=== PATIENT | female | born 1995 | race Two or more races ===

== ENCOUNTER → 2018-06-11 | Outpatient (CLI) | payer OTHER ==
[~2018-06-11] MED LIST: BCP'S; IBUP600 PO
[2018-06-11 14:02] LABS: BASOPHILS ABSOLUTE AUTO 0.05 K/mm3 (0.00-0.23); BASOPHILS PERCENT AUTO 1 % (0-2); EOSINOPHILS ABSOLUTE AUTO 0.08 K/mm3 (0.00-0.68); EOSINOPHILS PERCENT AUTO 2 % (0-6); Hematocrit 37.8 % (33.0-51.0); Hemoglobin 12.4 g/dL (11.5-16.0); IMMATURE GRAN PERCENT AUTO 0 % (0-1); LYMPHOCYTES PERCENT AUTO 35 % (21-46); MONOCYTES ABSOLUTE AUTO 0.49 K/mm3 (0.16-1.47); MONOCYTES PERCENT AUTO 10 % (4-13); Mean Corpuscular HGB Conc 32.8 g/dL (31.5-36.5); Mean Corpuscular Volume 85 fL (80-100); Mean Platelet Volume 10.7 fL (9.1-12.4); NEUTROPHILS ABSOLUTE AUTO 2.68 K/mm3 (1.96-9.15); NEUTROPHILS PERCENT AUTO 53 % (41-73); Platelet Count 286 K/mm3 (150-400); RDW Coefficient Variation 13.7 % (11.7-14.2); RDW Standard Deviation 42.7 fL (35.1-46.3); Red Blood Cell Count 4.43 M/mm3 (3.80-5.20)
[2018-06-11 14:24] LABS: Alanine Aminotransfer (ALT/SGP 14 U/L (12-78); Albumin, Blood 3.8 g/dL (3.4-5.0); Albumin/Globulin Ratio 1.1 (0.8-1.8); Alk Phos 49 U/L (40-126); Anion Gap 10 mmol/L (6-16); Aspartate Aminotrans (AST/SGOT 17 U/L (12-37); Bilirubin, Total 0.3 mg/dL (0.1-1.0); Blood Urea Nitrogen 7 mg/dL (8-24); CO2, Blood 27 mmol/L (21-32); Calcium, Blood 9.2 mg/dL (8.5-10.1); Chloride, Blood 105 mmol/L (98-108); Globulin, Blood 3.4 g/dL (2.2-4.0); Glomerular Filtration Rate >60 (60-); Glucose, Blood 88 mg/dL (70-99); Potassium, Blood 3.7 mmol/L (3.5-5.5); Sodium, Blood 142 mmol/L (136-145); Thyroid Stimulating Hormone 1.158 uIU/mL (0.360-4.800); Total Protein, Blood 7.2 g/dL (6.4-8.2)
== END | disposition home or self-care (01) ==
LOC: LAB SHORT 13:56 → LAB EV 13:56
PROVIDERS: General Practice
DX: R53.81 Other malaise (principal)
CPT/HCPCS: 80053; 82607; 82746; 84443; 85025; 85651

== ENCOUNTER → 2018-08-18 | Outpatient (CLI) | payer OTHER | END | disposition home or self-care (01) | LOC: LAB EV 11:34 → LAB SHORT 11:34 | DX: J03.90 Acute tonsillitis, unspecified (principal) | CPT/HCPCS: 87070 ==

== ENCOUNTER → 2018-12-01 | Outpatient (CLI) | payer OTHER ==
[2018-12-01 13:56] LABS: BASOPHILS ABSOLUTE AUTO 0.03 K/mm3 (0.00-0.23); BASOPHILS PERCENT AUTO 1 % (0-2); EOSINOPHILS ABSOLUTE AUTO 0.06 K/mm3 (0.00-0.68); EOSINOPHILS PERCENT AUTO 1 % (0-6); Hematocrit 34.9 % (33.0-51.0); Hemoglobin 11.6 g/dL (11.5-16.0); IMMATURE GRAN ABSOLUTE AUTO 0.01 K/mm3 (0.00-0.10); IMMATURE GRAN PERCENT AUTO 0 % (0-1); LYMPHOCYTES ABSOLUTE AUTO 1.74 K/mm3 (0.84-5.20); LYMPHOCYTES PERCENT AUTO 32 % (21-46); MONOCYTES ABSOLUTE AUTO 0.44 K/mm3 (0.16-1.47); MONOCYTES PERCENT AUTO 8 % (4-13); Mean Corpuscular HGB 28.2 pg (26.0-34.0); Mean Corpuscular HGB Conc 33.2 g/dL (31.5-36.5); Mean Corpuscular Volume 85 fL (80-100); Mean Platelet Volume 9.7 fL (9.1-12.4); NEUTROPHILS ABSOLUTE AUTO 3.13 K/mm3 (1.96-9.15); NEUTROPHILS PERCENT AUTO 58 % (41-73); Platelet Count 319 K/mm3 (150-400); RDW Coefficient Variation 13.2 % (11.7-14.2); RDW Standard Deviation 40.6 fL (35.1-46.3); Red Blood Cell Count 4.12 M/mm3 (3.80-5.20); White Blood Cell Count 5.41 K/mm3 (4.00-11.30)
[2018-12-01 14:10] LABS: Alanine Aminotransfer (ALT/SGP 13 U/L (12-78); Albumin, Blood 3.3 g/dL (3.4-5.0); Albumin/Globulin Ratio 0.8 (0.8-1.8); Alk Phos 51 U/L (40-126); Anion Gap 10 mmol/L (6-16); Aspartate Aminotrans (AST/SGOT 15 U/L (12-37); Bilirubin, Total 0.3 mg/dL (0.1-1.0); Blood Urea Nitrogen 7 mg/dL (8-24); Bun/Creatinine Ratio 8.6 (12.0-20.0); CO2, Blood 27 mmol/L (21-32); Calcium, Blood 8.5 mg/dL (8.5-10.1); Chloride, Blood 103 mmol/L (98-108); Creatinine, Blood 0.81 mg/dL (0.40-1.00); Globulin, Blood 3.9 g/dL (2.2-4.0); Glomerular Filtration Rate >60 (60-); Glucose, Blood 94 mg/dL (70-99); Potassium, Blood 3.9 mmol/L (3.5-5.5); Sodium, Blood 140 mmol/L (136-145); Total Protein, Blood 7.2 g/dL (6.4-8.2)
== END ==
LOC: LAB EV 13:52 → LAB SHORT 13:52
PROVIDERS: Family Medicine
DX: R42 Dizziness and giddiness (principal)
CPT/HCPCS: 80053; 85025

== ENCOUNTER → 2019-01-28 | Outpatient (CLI) | payer OTHER ==
[2019-01-28 17:13] LABS: BASOPHILS ABSOLUTE AUTO 0.06 K/mm3 (0.00-0.23); BASOPHILS PERCENT AUTO 1 % (0-2); EOSINOPHILS ABSOLUTE AUTO 0.05 K/mm3 (0.00-0.68); EOSINOPHILS PERCENT AUTO 1 % (0-6); Hematocrit 38.1 % (33.0-51.0); Hemoglobin 12.4 g/dL (11.5-16.0); IMMATURE GRAN ABSOLUTE AUTO 0.02 K/mm3 (0.00-0.10); IMMATURE GRAN PERCENT AUTO 0 % (0-1); LYMPHOCYTES PERCENT AUTO 23 % (21-46); MONOCYTES ABSOLUTE AUTO 0.63 K/mm3 (0.16-1.47); MONOCYTES PERCENT AUTO 7 % (4-13); Mean Corpuscular HGB 26.7 pg (26.0-34.0); Mean Corpuscular HGB Conc 32.5 g/dL (31.5-36.5); Mean Corpuscular Volume 82 fL (80-100); Mean Platelet Volume 9.8 fL (9.1-12.4); NEUTROPHILS ABSOLUTE AUTO 6.54 K/mm3 (1.96-9.15); NEUTROPHILS PERCENT AUTO 69 % (41-73); Platelet Count 308 K/mm3 (150-400); RDW Coefficient Variation 14.5 % (11.7-14.2); RDW Standard Deviation 42.1 fL (35.1-46.3); Red Blood Cell Count 4.64 M/mm3 (3.80-5.20)
[2019-01-28 17:26] LABS: Alanine Aminotransfer (ALT/SGP 19 U/L (12-78); Albumin, Blood 3.9 g/dL (3.4-5.0); Alk Phos 62 U/L (40-126); Anion Gap 11 mmol/L (6-16); Aspartate Aminotrans (AST/SGOT 17 U/L (12-37); Bilirubin, Total 0.3 mg/dL (0.1-1.0); Blood Urea Nitrogen 6 mg/dL (8-24); Bun/Creatinine Ratio 7.7 (12.0-20.0); CO2, Blood 25 mmol/L (21-32); Calcium, Blood 8.6 mg/dL (8.5-10.1); Chloride, Blood 103 mmol/L (98-108); Creatinine, Blood 0.78 mg/dL (0.40-1.00); Glomerular Filtration Rate >60 (60-); Glucose, Blood 88 mg/dL (70-99); Potassium, Blood 3.7 mmol/L (3.5-5.5); Sodium, Blood 139 mmol/L (136-145); Total Protein, Blood 7.9 g/dL (6.4-8.2)
== END | disposition home or self-care (01) ==
LOC: LAB EV 17:08 → LAB SHORT 17:08
PROVIDERS: Physician Assistant
DX: R10.13 Epigastric pain (principal)
CPT/HCPCS: 80053; 83690; 85025

== ENCOUNTER → 2019-03-03 | Outpatient (CLI) | payer OTHER | END | disposition home or self-care (01) | LOC: LAB SHORT 12:15 → LAB EV 12:15 | DX: R82.79 Other abnormal findings on microbiological examination of urine (principal) | CPT/HCPCS: 87086 ==

== ENCOUNTER 2019-09-05 08:33 | Day surgery (SDC) | payer OTHER ==
[~2019-09-05] VITALS: Ht 154.9 cm; Wt 62.4 kg
[~2019-09-05 08:33] MED LIST changes: +Robaxin750 MG PO; +SERT25 PO; +Sprintec1 EACH PO
--- NOTE | 2019-09-05 09:45 | NUR ---
09/05/19 0945 GATO RAMIRES History, Chart, Medications and Allergies reviewed before start of procedure.3-LEAD EKG REVIEWED WITH PHYSICIAN PRIOR TO START OF PROCEDURE.O2 VIA N/C INTACT THROUGHOUT SEDATION/PROCEDURE. MONITOR INTACT WITH CONTINUOUS PULSE OXIMETRY AND INTERMITTENT BP.PATIENT DETERMINED TO BE ASA APPROPRIATE FOR PROPOFOL SEDATION PRIOR TO START OF PROCEDURE BY .
--- NOTE | 2019-09-05 10:49 | NUR ---
PT TO STEP. DENIES PAIN OR NAUSEA.
--- NOTE | 2019-09-05 10:49 | NUR ---
ADVISED TO PASS AIR IF ABLE.
--- NOTE | 2019-09-05 11:00 | NUR ---
REPORT GIVEN TO DANIELLE CHAVARRIA RN.
--- NOTE | 2019-09-05 11:21 | NUR ---
Patient up to Ambulate independently. Gait steady. Discharge instructions reviewed with patient. Patient verbalizes understanding. Copy given to patient to take home. Discharged via wheelchair to private car for ride home.
== END 2019-09-05 11:21 | disposition home or self-care (01) ==
LOC: ORSCMMR 08:33 → ORD 09:30 → ORSCMMR 11:21
PROVIDERS: Internal Medicine Gastroenterology
PROC: 0DB68ZX Excision of Stomach, Via Natural or Artificial Opening Endoscopic, Diagnostic (ICD-10-PCS; principal; 2019-09-05 09:30)
PROC: 0DB48ZX Excision of Esophagogastric Junction, Via Natural or Artificial Opening Endoscopic, Diagnostic (ICD-10-PCS; principal; 2019-09-05 09:30)
PROC: 0DB98ZX Excision of Duodenum, Via Natural or Artificial Opening Endoscopic, Diagnostic (ICD-10-PCS; principal; 2019-09-05 09:30)
PROC: 0DBE8ZX Excision of Large Intestine, Via Natural or Artificial Opening Endoscopic, Diagnostic (ICD-10-PCS; principal; 2019-09-05 09:30)
DX: R19.7 Diarrhea, unspecified (principal); K21.9 Gastro-esophageal reflux disease without esophagitis; R10.13 Epigastric pain; R11.2 Nausea with vomiting, unspecified; K62.5 Hemorrhage of anus and rectum; F32.9 Major depressive disorder, single episode, unspecified; Z79.899 Other long term (current) drug therapy
CPT/HCPCS: 88305; 88342; J2250; J2704; J7120

== ENCOUNTER → 2019-09-21 | Outpatient (CLI) | payer OTHER | LOC: LAB UCHC 09:57 → LAB SHORT 09:57 | PROVIDERS: Registered Nurse Community Health | DX: Z12.4 Encounter for screening for malignant neoplasm of cervix (principal) | CPT/HCPCS: G0123 ==

== ENCOUNTER 2019-11-22 05:53 | Day surgery (SDC) | payer OTHER ==
[~2019-11-22] VITALS: Ht 154.9 cm; Wt 65.6 kg
--- NOTE | 2019-11-22 06:49 | NUR ---
History, Chart, Medications and Allergies reviewed before start of procedure. Patient confirms NPO status and agrees with scheduled surgery. Lungs clear T/O to Auscultation. Patient reports completing Chlorhexadine shower X2 prior to admission to hospital. Patient States Post-Procedure ride home has been arranged. Pre-Op teaching done. Pt verbalizes understanding. PATIENT WILL REMOVE RING AND GIVE TO HER SIGNIFICANT OTHER, NO OTHER HEARING DEVICES,CONTACTS,GLASSES, OR DENTURES PRESENT AT ADMIT.
--- NOTE | 2019-11-22 07:09 | NUR ---
OR REPORT COMPLETED AT BEDSIDE WITH JOSUE BROWN.
== END 2019-11-22 12:30 | disposition home or self-care (01) ==
LOC: ORSCMMR 05:53 → ORD 07:30 → ORSCMMR 07:30 → ORD 08:45 → ORSCMMR 12:30
PROVIDERS: Surgery
PROC: 0FT44ZZ Resection of Gallbladder, Percutaneous Endoscopic Approach (ICD-10-PCS; principal; 2019-11-22 07:30)
DX: K80.18 Calculus of gallbladder with other cholecystitis without obstruction (principal)
CPT/HCPCS: 88304; A9270-GY; J0690; J1100; J1885; J2250; J2405; J2704; J2710; J3010; J7120

== ENCOUNTER 2021-12-30 11:41 | Emergency (ER) | payer OTHER ==
[~2021-12-30] VITALS: Ht 154.9 cm; Wt 59.0 kg
[2021-12-30 12:28] LABS: BASOPHILS ABSOLUTE AUTO 0.07 K/mm3 (0.00-0.23); BASOPHILS PERCENT AUTO 1 % (0-2); EOSINOPHILS ABSOLUTE AUTO 0.12 K/mm3 (0.00-0.68); EOSINOPHILS PERCENT AUTO 1 % (0-6); Hematocrit 38.3 % (33.0-51.0); Hemoglobin 12.8 g/dL (11.5-16.0); IMMATURE GRAN ABSOLUTE AUTO 0.03 K/mm3 (0.00-0.10); IMMATURE GRAN PERCENT AUTO 0 % (0-1); LYMPHOCYTES ABSOLUTE AUTO 1.87 K/mm3 (0.84-5.20); LYMPHOCYTES PERCENT AUTO 22 % (21-46); MONOCYTES ABSOLUTE AUTO 0.57 K/mm3 (0.16-1.47); MONOCYTES PERCENT AUTO 7 % (4-13); Mean Corpuscular HGB 28.5 pg (26.0-34.0); Mean Corpuscular HGB Conc 33.4 g/dL (31.5-36.5); Mean Corpuscular Volume 85 fL (80-100); Mean Platelet Volume 10.1 fL (9.1-12.4); NEUTROPHILS ABSOLUTE AUTO 5.83 K/mm3 (1.96-9.15); NEUTROPHILS PERCENT AUTO 69 % (41-73); Platelet Count 301 K/mm3 (150-400); RDW Coefficient Variation 12.6 % (11.7-14.2); RDW Standard Deviation 39.1 fL (35.1-46.3); Red Blood Cell Count 4.49 M/mm3 (3.80-5.20); White Blood Cell Count 8.49 K/mm3 (4.00-11.30)
[2021-12-30 12:56] LABS: Alanine Aminotransfer (ALT/SGP 25 U/L (12-78); Albumin, Blood 3.8 g/dL (3.4-5.0); Albumin/Globulin Ratio 1.1 (0.8-1.8); Alk Phos 65 U/L (50-136); Anion Gap 9 mmol/L (6-16); Aspartate Aminotrans (AST/SGOT 17 U/L (12-37); Bilirubin, Total 0.5 mg/dL (0.1-1.0); Blood Urea Nitrogen 6 mg/dL (8-24); Bun/Creatinine Ratio 8.8 (12.0-20.0); CO2, Blood 26 mmol/L (21-32); Chloride, Blood 104 mmol/L (98-108); Creatinine, Blood 0.68 mg/dL (0.40-1.00); Globulin, Blood 3.6 g/dL (2.2-4.0); Glomerular Filtration Rate >60 (60-); Glucose, Blood 98 mg/dL (70-99); Potassium, Blood 3.3 mmol/L (3.5-5.5); Sodium, Blood 139 mmol/L (136-145); Total Protein, Blood 7.4 g/dL (6.4-8.2)
[2021-12-30 13:14] LABS: Source, Urine Clean Catch
[2021-12-30 13:19] LABS: Bilirubin, Urine Neg (Neg); Blood, Urine 3+ (Neg); Glucose Qualitative, Urine Neg (Neg); Ketones, Urine Neg (Neg); Leukocyte Esterase, Urine Neg (Neg); Nitrite, Urine Neg (Neg); Protein, Urine 1+ (Neg); Specific Gravity, Urine 1.025 (1.003-1.022); Urobilinogen, Urine NORM (Normal)
[2021-12-30 13:38] LABS: Appearance, Urine Hazy (Clear); Color, Urine Pale Yellow (P-Yellow)
[2021-12-30 13:39] LABS: Bacteria Few /hpf; Mucus Heavy (0-Heavy); Squamous Epithelial Cells Rare /hpf (Few); White Blood Cells, Urine 0-2 /hpf (0-5)
[2021-12-30] MEDS ORDERED: ONDA4ODT MM (14:55)
== END 2021-12-30 15:13 | disposition home or self-care (01) ==
LOC: ER 11:41
PROVIDERS: Physician Assistant
DX: A09 Infectious gastroenteritis and colitis, unspecified (principal); J45.909 Unspecified asthma, uncomplicated; Z79.899 Other long term (current) drug therapy
CPT/HCPCS: 36415; 80053; 81001; 81025; 85025; 96374; 99283-25; A9270; J2405; J7030

== ENCOUNTER → 2022-01-01 | Outpatient (CLI) | payer OTHER ==
[~2022-01-01] MED LIST changes: +ONDA4ODT MM
[2022-01-01 17:04] LABS: Adenovirus F 40/41 Not Detected (NOT DETECT); Astrovirus Not Detected (NOT DETECT); Campylobacter Sp Not Detected (NOT DETECT); Cryptosporidium Not Detected (NOT DETECT); Cyclospora Cayetanensis Not Detected (NOT DETECT); E. Coli O157 Not Detected (NOT DETECT); Entamoeba Histolytica Not Detected (NOT DETECT); Enteroaggregative E. coli-EAEC Not Detected (NOT DETECT); Enteropathogenic E. coli-EPEC Not Detected (NOT DETECT); Enterotoxigenic E. coli-ETEC Not Detected (NOT DETECT); Giardia Lamblia Not Detected (NOT DETECT); Norovirus GI/GII Not Detected (NOT DETECT); Plesiomonas Shigelloides Not Detected (NOT DETECT); Rotavirus A Not Detected (NOT DETECT); Salmonella Sp Not Detected (NOT DETECT); Sapovirus Not Detected (NOT DETECT); Shiga Toxin-prod E. coli-STEC Not Detected (NOT DETECT); Shigella/Enteroin E. coli-EIEC Not Detected (NOT DETECT); Vibrio Cholerae Not Detected (NOT DETECT); Vibrio Sp Not Detected (NOT DETECT); Yersinia Enterocolitica Not Detected (NOT DETECT)
== END | disposition home or self-care (01) ==
LOC: LAB SHORT 12:40
PROVIDERS: Emergency Medicine
DX: R19.7 Diarrhea, unspecified (principal)
CPT/HCPCS: 0097U

== ENCOUNTER → 2022-01-06 | Outpatient (CLI) | payer OTHER ==
[~2022-01-06] MED LIST changes: +METPRE4DP PO; +SULF500A PO
[2022-01-06 15:26] LABS: BASOPHILS ABSOLUTE AUTO 0.06 K/mm3 (0.00-0.23); BASOPHILS PERCENT AUTO 1 % (0-2); EOSINOPHILS ABSOLUTE AUTO 0.09 K/mm3 (0.00-0.68); EOSINOPHILS PERCENT AUTO 2 % (0-6); Hemoglobin 10.1 g/dL (11.5-16.0); IMMATURE GRAN ABSOLUTE AUTO 0.01 K/mm3 (0.00-0.10); IMMATURE GRAN PERCENT AUTO 0 % (0-1); LYMPHOCYTES ABSOLUTE AUTO 1.85 K/mm3 (0.84-5.20); LYMPHOCYTES PERCENT AUTO 33 % (21-46); MONOCYTES ABSOLUTE AUTO 0.42 K/mm3 (0.16-1.47); MONOCYTES PERCENT AUTO 8 % (4-13); Mean Corpuscular HGB 28.5 pg (26.0-34.0); Mean Corpuscular HGB Conc 33.7 g/dL (31.5-36.5); Mean Corpuscular Volume 85 fL (80-100); NEUTROPHILS PERCENT AUTO 57 % (41-73); Platelet Count 269 K/mm3 (150-400); RDW Coefficient Variation 13.2 % (11.7-14.2); RDW Standard Deviation 40.3 fL (35.1-46.3); Red Blood Cell Count 3.55 M/mm3 (3.80-5.20); White Blood Cell Count 5.63 K/mm3 (4.00-11.30)
[2022-01-06 16:09] LABS: C-REACTIVE PROTEIN, EXT RANGE <0.290 mg/dL (0.000-0.300); Iron Serum 30 ug/dL (50-170); Percent Saturation 9.6 % (15.0-50.0); Total Iron Binding Capacity 313 ug/dL (250-450)
[2022-01-06 16:16] LABS: Ferritin, Serum 9 ng/mL (8-252)
[2022-01-06 16:27] LABS: Anion Gap 4 mmol/L (6-16); Blood Urea Nitrogen 5 mg/dL (8-24); Bun/Creatinine Ratio 7.1 (12.0-20.0); CO2, Blood 23 mmol/L (21-32); Calcium, Blood 8.4 mg/dL (8.5-10.1); Chloride, Blood 110 mmol/L (98-108); Glomerular Filtration Rate >60 (60-); Glucose, Blood 101 mg/dL (70-99); Potassium, Blood 3.6 mmol/L (3.5-5.5); Sodium, Blood 137 mmol/L (136-145)
== END | disposition home or self-care (01) ==
LOC: LAB SHORT 14:35
PROVIDERS: Nurse Practitioner Family
DX: R19.7 Diarrhea, unspecified (principal)
CPT/HCPCS: 80048; 82728; 83540; 83550; 85025; 86140

== ENCOUNTER → 2023-11-24 | Outpatient (CLI) | payer OTHER ==
[2023-11-24 15:00] LABS: BASOPHILS ABSOLUTE AUTO 0.07 K/mm3 (0.00-0.23); BASOPHILS PERCENT AUTO 1 % (0-2); EOSINOPHILS ABSOLUTE AUTO 0.05 K/mm3 (0.00-0.68); EOSINOPHILS PERCENT AUTO 1 % (0-6); Hematocrit 39.4 % (33.0-51.0); Hemoglobin 13.1 g/dL (11.5-16.0); IMMATURE GRAN ABSOLUTE AUTO 0.02 K/mm3 (0.00-0.10); IMMATURE GRAN PERCENT AUTO 0 % (0-1); LYMPHOCYTES ABSOLUTE AUTO 1.92 K/mm3 (0.84-5.20); LYMPHOCYTES PERCENT AUTO 33 % (21-46); MONOCYTES ABSOLUTE AUTO 0.47 K/mm3 (0.16-1.47); MONOCYTES PERCENT AUTO 8 % (4-13); Mean Corpuscular HGB 28.8 pg (26.0-34.0); Mean Corpuscular HGB Conc 33.2 g/dL (31.5-36.5); Mean Corpuscular Volume 87 fL (80-100); NEUTROPHILS ABSOLUTE AUTO 3.32 K/mm3 (1.96-9.15); NEUTROPHILS PERCENT AUTO 57 % (41-73); Platelet Count 290 K/mm3 (150-400); RDW Coefficient Variation 12.7 % (11.7-14.2); RDW Standard Deviation 39.8 fL (35.1-46.3); Red Blood Cell Count 4.55 M/mm3 (3.80-5.20); White Blood Cell Count 5.85 K/mm3 (4.00-11.30)
[2023-11-24 15:26] LABS: Percent Saturation 16.8 % (15.0-50.0)
[2023-11-24 15:30] LABS: Thyroid Stimulating Hormone 0.586 uIU/mL (0.360-4.800)
[2023-11-25 19:06] LABS: A/G RATIO 2.1 (1.2-2.2); BILIRUBIN, TOTAL 0.4 mg/dL (0.0-1.2); CALCIUM, SERUM 9.2 mg/dL (8.7-10.2); CREATININE, SERUM 0.74 mg/dL (0.57-1.00); GLOBULIN, TOTAL 2.2 g/dL (1.5-4.5); POTASSIUM, SERUM 4.1 mmol/L (3.5-5.2); PROTEIN, TOTAL, SERUM 6.9 g/dL (6.0-8.5)
== END ==
LOC: LAB EV 12:53 → LAB SHORT 12:53
PROVIDERS: Nurse Practitioner Family
DX: E61.1 Iron deficiency (principal); F41.9 Anxiety disorder, unspecified; R73.01 Impaired fasting glucose
CPT/HCPCS: 80053; 82728; 83036; 83540; 83550; 84443; 85025

== ENCOUNTER → 2024-04-05 | Outpatient (CLI) | payer OTHER ==
[~2024-04-05] MED LIST changes: +NAPR220 PO
== END | disposition home or self-care (01) ==
LOC: LAB 09:30 → LAB SHORT 09:30
DX: Z32.02 Encounter for pregnancy test, result negative (principal)
CPT/HCPCS: 84702

== ENCOUNTER 2024-07-07 10:11 | Day surgery (SDC) | payer OTHER ==
[~2024-07-07] VITALS: Ht 154.9 cm; Wt 54.4 kg
[2024-07-07] VITALS (11 sets, daily range): BP systolic 100–1156; BP diastolic 70–85
[~2024-07-07 10:11] MED LIST changes: +CeFAZolin Sodium 2,000 MG in NS 100 ML IV SCH; +Lactated Ringer's 1,000 ML IV SCH; +SERT50 PO; +SULF500 PO
[2024-07-07] MEDS ORDERED: ALBU90OI INH (10:30)
[2024-07-07] MEDS ORDERED: Bupivacaine 0.5% HCl 5 MG/ML 30MLVIAL ONE (10:33)
[2024-07-07] MEDS ORDERED: FentaNYL Citrate 50 MCG/ML 2 ML Injection ONE ×3 (10:39→12:20)
[2024-07-07] MEDS ORDERED: Rocuronium Bromide 10 MG/ML 5ML Injection IV ONE (10:39)
[2024-07-07] MEDS ORDERED: Dexamethasone Sod Phos 10 MG/ML 1ML VIAL ONE (10:39)
[2024-07-07] MEDS ORDERED: propofoL 20 ML IV ONE (10:39)
[2024-07-07] MEDS ORDERED: Ondansetron HCl 2 MG / ML 2ML Vial ONE (10:39)
--- NOTE | 2024-07-07 10:49 | NUR ---
Ambulatory in Day Surgery History, Chart, Medications and Allergies reviewed before start of procedure. Pre-Op teaching done. Pt verbalizes understanding. Patient States Post-Procedure ride home has been arranged.
[2024-07-07] MEDS ORDERED: Midazolam HCl 1MG / ML 2ML Vial ONE (11:17)
[2024-07-07] MEDS ORDERED: Sugammadex Sodium 200 MG/2ML SDV (100 MG/ML) ONE (11:51)
[2024-07-07] MEDS ORDERED: Ketorolac Tromethamine 30mg Vial ONE (12:04)
[2024-07-07] MEDS ORDERED: OxyCODONE 5 mg/Acetamin 325 mg TABLET PO PRN (12:10)
--- NOTE | 2024-07-07 13:26 | NUR ---
Discharge instructions reviewed with patient. Patient verbalizes understanding. Copy given to patient to take home. Dressings c/d/i. Prescriptions already filled. Scant bleeding on bertha-pad. Patient States Post-Procedure ride home has been arranged. Discharged via wheelchair to private car for ride home.
== END 2024-07-07 13:30 | disposition home or self-care (01) ==
LOC: ORSCMMR 10:11 → ORD 11:30 → ORSCMMR 11:30
PROVIDERS: Obstetrics & Gynecology
PROC: 0UT74ZZ Resection of Bilateral Fallopian Tubes, Percutaneous Endoscopic Approach (ICD-10-PCS; principal; 2024-07-07 11:30)
DX: Z30.2 Encounter for sterilization (principal); Q50.5 Embryonic cyst of broad ligament; Z87.891 Personal history of nicotine dependence
CPT/HCPCS: 88302; J0690; J1100; J1885; J2250; J2405; J2704; J3010; J7120

== ENCOUNTER 2024-07-15 22:53 | Emergency (ER) | payer OTHER ==
[~2024-07-15] VITALS: Ht 152.4 cm; Wt 54.4 kg
[~2024-07-15 22:53] MED LIST changes: +ALBU90OI INH; -CeFAZolin Sodium 2,000 MG in NS 100 ML IV SCH; -Lactated Ringer's 1,000 ML IV SCH
[2024-07-15 23:15] VITALS: BP 113/86
== END 2024-07-15 23:21 | disposition home or self-care (01) ==
LOC: ER 22:53
DX: K62.5 Hemorrhage of anus and rectum (principal); K64.8 Other hemorrhoids; Z88.5 Allergy status to narcotic agent; Z79.3 Long term (current) use of hormonal contraceptives; Z87.891 Personal history of nicotine dependence
CPT/HCPCS: 82272; 99283

== ENCOUNTER → 2024-07-19 | Outpatient (CLI) | payer OTHER ==
[2024-07-19 14:54] LABS: BASOPHILS ABSOLUTE AUTO 0.07 K/mm3 (0.00-0.23); BASOPHILS PERCENT AUTO 1 % (0-2); EOSINOPHILS ABSOLUTE AUTO 0.33 K/mm3 (0.00-0.68); EOSINOPHILS PERCENT AUTO 5 % (0-6); Hematocrit 30.9 % (33.0-51.0); Hemoglobin 10.2 g/dL (11.5-16.0); IMMATURE GRAN ABSOLUTE AUTO 0.01 K/mm3 (0.00-0.10); IMMATURE GRAN PERCENT AUTO 0 % (0-1); LYMPHOCYTES ABSOLUTE AUTO 2.66 K/mm3 (0.84-5.20); LYMPHOCYTES PERCENT AUTO 36 % (21-46); MONOCYTES ABSOLUTE AUTO 0.64 K/mm3 (0.16-1.47); MONOCYTES PERCENT AUTO 9 % (4-13); Mean Corpuscular HGB 27.5 pg (26.0-34.0); Mean Corpuscular Volume 83 fL (80-100); Mean Platelet Volume 11.6 fL (9.1-12.4); NEUTROPHILS ABSOLUTE AUTO 3.65 K/mm3 (1.96-9.15); NEUTROPHILS PERCENT AUTO 50 % (41-73); Platelet Count 290 K/mm3 (150-400); RDW Coefficient Variation 14.4 % (11.7-14.2); RDW Standard Deviation 43.6 fL (35.1-46.3); Red Blood Cell Count 3.71 M/mm3 (3.80-5.20); White Blood Cell Count 7.36 K/mm3 (4.00-11.30)
== END | disposition home or self-care (01) ==
LOC: LAB 11:13 → LAB SHORT 11:13
PROVIDERS: Nurse Practitioner Family
DX: E61.1 Iron deficiency (principal)
CPT/HCPCS: 82728; 83540; 83550; 85025

== ENCOUNTER 2024-10-29 11:46 | Inpatient (IN) | payer OTHER ==
[~2024-10-29] VITALS: Ht 154.9 cm; Wt 54.5 kg
[2024-10-29 12:33] LABS: BASOPHILS ABSOLUTE AUTO 0.05 K/mm3 (0.00-0.23); BASOPHILS PERCENT AUTO 1 % (0-2); EOSINOPHILS ABSOLUTE AUTO 0.13 K/mm3 (0.00-0.68); EOSINOPHILS PERCENT AUTO 2 % (0-6); Hematocrit 21.2 % (33.0-51.0); Hemoglobin 6.3 g/dL (11.5-16.0); IMMATURE GRAN ABSOLUTE AUTO 0.03 K/mm3 (0.00-0.10); IMMATURE GRAN PERCENT AUTO 1 % (0-1); LYMPHOCYTES ABSOLUTE AUTO 1.49 K/mm3 (0.84-5.20); LYMPHOCYTES PERCENT AUTO 23 % (21-46); MONOCYTES ABSOLUTE AUTO 0.54 K/mm3 (0.16-1.47); MONOCYTES PERCENT AUTO 8 % (4-13); Mean Corpuscular HGB 20.6 pg (26.0-34.0); Mean Corpuscular HGB Conc 29.7 g/dL (31.5-36.5); Mean Corpuscular Volume 69 fL (80-100); Mean Platelet Volume 9.9 fL (9.1-12.4); NEUTROPHILS PERCENT AUTO 66 % (41-73); Platelet Count 281 K/mm3 (150-400); RDW Coefficient Variation 18.6 % (11.7-14.2); RDW Standard Deviation 46.1 fL (35.1-46.3); Red Blood Cell Count 3.06 M/mm3 (3.80-5.20); White Blood Cell Count 6.54 K/mm3 (4.00-11.30)
[2024-10-29 12:47] LABS: Albumin, Blood 3.6 g/dL (3.4-5.0); Albumin/Globulin Ratio 1.2 (0.8-1.8); Bilirubin, Total 0.3 mg/dL (0.1-1.0); Bun/Creatinine Ratio 14.8 (12.0-20.0); Calcium, Blood 8.3 mg/dL (8.5-10.1); Creatinine, Blood 0.61 mg/dL (0.40-1.00); Globulin, Blood 2.9 g/dL (2.2-4.0); Potassium, Blood 3.1 mmol/L (3.5-5.5); Total Protein, Blood 6.5 g/dL (6.4-8.2)
[2024-10-29 13:34] LABS: IMMATURE RETIC FRACTION 20.6 % (2.3-16.0); RETIC HGB EQUIVALENT 18.6 pg (28.20-36.60); RETICULOCYTE ABSOLUTE 0.0441 M/mm3 (0.0200-0.1100); RETICULOCYTE COUNT PERCENT 1.47 % (0.50-2.50)
[2024-10-29 13:48] LABS: Percent Saturation 2.7 % (15.0-50.0)
[2024-10-29] MEDS ORDERED: NS 1,000 ML IV SCH ×2 (15:15→18:45)
[2024-10-29] MEDS ORDERED: FLU VACC TS2024-25(6MOS UP)/PF 45 MCG/0.5 ML SYRINGE IM SCH (16:50)
[2024-10-29] MEDS ORDERED: Ondansetron HCl 2 MG / ML 2ML Vial IV PRN (16:50)
[2024-10-29] MEDS ORDERED: HyDROXyzine HCl 25 MG Tab PO ONE (17:10)
[2024-10-29] MEDS ORDERED: Potassium Chloride 40 MEQ in NS 250 ML IV ONE (17:10)
[2024-10-29] MEDS ORDERED: Sodium, Potassium,Mag Sulfates 354 ML PO ONE (18:00)
[2024-10-29] MEDS ORDERED: NS 1,000 ML IV ONE (18:33)
[2024-10-29 19:22] LABS: Hematocrit 22.9 % (33.0-51.0)
[2024-10-29] MEDS ORDERED: NS 500 ML IV SCH (21:20)
[2024-10-29 21:22] VITALS: BP 115/65
[2024-10-29 22:04] VITALS: BP 109/66
--- NOTE | 2024-10-29 22:07 | NUR ---
ARRIVAL PT ARRIVED TO THE UNIT. A/OX4, ON RA. PT REPORTS DIZZINESS AND LIGHTHEADED NESS WHEN STANDING BUT REPORTS IT PASSESS AFTER STANDING FOR A MOMENT. VSS. PT PASSING LARGE AMOUNTS OF MAGGIE RED BLOOD PER RECTUM. REPORTS INTERMITTENT NAUSEA. DR. BELL TO THE ROOM FOR A BLOOD CONCENT.
[2024-10-29 22:20] VITALS: BP 99/72
[2024-10-29 23:21] VITALS: BP 113/71
[2024-10-30] VITALS (14 sets, daily range): BP systolic 95–112; BP diastolic 53–74
--- NOTE | 2024-10-30 00:42 | NUR ---
BLOOD ADMINISTRATION THE PT JUST FINISHED RECIEVING THE 2ND UNIT OF PRBC, DENIES ANY SOB, INCREASED WOB, LOWER BACK PAIN, OR ITCHING
[2024-10-30 01:45] LABS: BASOPHILS ABSOLUTE AUTO 0.09 K/mm3 (0.00-0.23); BASOPHILS PERCENT AUTO 1 % (0-2); EOSINOPHILS ABSOLUTE AUTO 0.09 K/mm3 (0.00-0.68); EOSINOPHILS PERCENT AUTO 1 % (0-6); Hematocrit 27.2 % (33.0-51.0); Hemoglobin 8.7 g/dL (11.5-16.0); IMMATURE GRAN ABSOLUTE AUTO 0.06 K/mm3 (0.00-0.10); IMMATURE GRAN PERCENT AUTO 1 % (0-1); LYMPHOCYTES PERCENT AUTO 29 % (21-46); MONOCYTES ABSOLUTE AUTO 0.82 K/mm3 (0.16-1.47); MONOCYTES PERCENT AUTO 10 % (4-13); Mean Corpuscular HGB 24.1 pg (26.0-34.0); Mean Platelet Volume 9.8 fL (9.1-12.4); NEUTROPHILS ABSOLUTE AUTO 5.05 K/mm3 (1.96-9.15); NEUTROPHILS PERCENT AUTO 59 % (41-73); Platelet Count 254 K/mm3 (150-400); RDW Coefficient Variation 21.8 % (11.7-14.2); Red Blood Cell Count 3.61 M/mm3 (3.80-5.20); White Blood Cell Count 8.61 K/mm3 (4.00-11.30)
[2024-10-30 01:47] LABS: Mean Corpuscular Volume 75 fL (80-100)
[2024-10-30 02:04] LABS: Albumin, Blood 3.3 g/dL (3.4-5.0); Albumin/Globulin Ratio 1.2 (0.8-1.8); Bilirubin, Total 1.4 mg/dL (0.1-1.0); Bun/Creatinine Ratio 8.1 (12.0-20.0); Calcium, Blood 7.7 mg/dL (8.5-10.1); Creatinine, Blood 0.49 mg/dL (0.40-1.00); Globulin, Blood 2.7 g/dL (2.2-4.0); Potassium, Blood 3.9 mmol/L (3.5-5.5)
--- NOTE | 2024-10-30 05:16 | NUR ---
SHIFT SUMMARY VSS, TELE READS NSR 71. PT HAS SLEPT WELL T/O THE NIGHT. AMBULATING TO THE BATHROOM/BSC W/MIN ASSISTANCE. PASSING LARGE AMOUNTS OF BRIGHT RED LIQUID PER RECTUM. PT HAS COMPLETED HER BOWEL PREP, MADE NPO AT 0500. REPORTS MINIMAL DIFFUSE ABD TENDERNESS. PT REPORTS IMPROVEMENT IN SYMPTOMS OF DIZINESS, LIGHTHEADEDNESS, AND WEAKNESS THIS AM. PLAN FOR UPPER AND LOWER SCOPE THIS AM.
[2024-10-30] MEDS ORDERED: Lactated Ringer's 1,000 ML IV SCH (08:30)
[2024-10-30] MEDS ORDERED: propofoL 20 ML IV ONE ×4 (09:34→10:27)
--- NOTE | 2024-10-30 09:41 | NUR ---
History, Chart, Medications and Allergies reviewed before start of procedure. Lungs clear T/O to Auscultation. Patient confirms NPO status and agrees with scheduled surgery. Pre-Op teaching done. Pt verbalizes understanding. Patient states colon prep results clear.
--- NOTE | 2024-10-30 09:57 | NUR ---
10/30/24 0957 Jami Tamez History, Chart, Medications and Allergies reviewed before start of procedure. LUNGS CLEAR T/O TO AUSCULTATION. MONITOR INTACT WITH CONTINUOUS PULSE OXIMETRY, CONTINUOUS END TITAL CO2, AND INTERMITTENT BLOOD PRESSURE. SEE DR. SO FOR SEDATION RECORD.
[2024-10-30] MEDS ORDERED: FentaNYL Citrate 50 MCG/ML 2 ML Injection IV PRN (11:15)
[2024-10-30] MEDS ORDERED: HYDROcodone 5-APAP 325 TAB PO PRN (11:20)
--- NOTE | 2024-10-30 11:25 | NUR ---
pt arrived to unit from day surgery transferred pt from [facility] to bed. pt awoke and began thrashing around and crying out that her rectum is very painful. difficult to redirect to get vs and put on tele. had episode of emesis, medicated per orders w/rob. dr guillory ordered pain meds, awaiting pharmacy verification. pt crying in room, provided k pad to area for comfort. bed alarm on for safety. pt to remain npo per orders for now.
--- NOTE | 2024-10-30 12:53 | NUR ---
PT CRYING OUT AND SHAKING W/PAIN STATES PAIN IS ON INSIDE. KPAD FOR COMFORT AND MEDICATED PER ORDERS FOR PAIN. COACHED PT ON RELAXATION BREATHING BUT PT IS DIFFICULT TO REDIRECT AND CONSOLE DUE TO PAIN. CALL LIGHT IN REACH.
[2024-10-30 13:16] LABS: Hemoglobin 8.3 g/dL (11.5-16.0)
--- NOTE | 2024-10-30 13:26 | NUR ---
DR HAWK IN TO SEE PT.
--- NOTE | 2024-10-30 13:34 | NUR ---
PAIN IMPROVED. PT SLEEPING WHEN ENTERED ROOM WITH DR HAWK. AWOKE TO VOICE AND REPORTED PAIN NOW 3/10, IMPROVED FROM 10/10. RESTING IN BED, CALL LIGHT IN REACH.
[2024-10-30] MEDS ORDERED: Sod Ferric Gluc Complx/Sucrose 125 MG in NS 100 ML IV SCH (16:17)
--- NOTE | 2024-10-30 17:18 | NUR ---
SUMMARY PT WAS EXTREMELY PAINFUL WHEN ARRIVED BACK TO UNIT FROM SCOPE. PT WAS DIFFICULT TO CONSOLE, SHAKING AND CRYING WITH PAIN. MEDICATED PER ORDERS FOR THE PAIN. DR HAWK DISCUSSED TAKING PT BACK TO OR TO REMOVE BANDS PLACED ON INTERNAL HEMMORHOIDS; PT HAD AGREED. WHEN OR CREW ARRIVED TO TAKE PT TO PROCEDURE, PT WAS FOUND TO BE SLEEPING. WHEN WOKE PT, SHE REPORTED PAIN WAS MUCH IMPROVED AND RATED 3/10. DID NOT GO TO HAVE BANDS REMOVED. RESTED T/O AFTERNOON. THIS EVENING, REPORTED PAIN INCREASING AND WAS GIVEN NORCO. REPORTS PAIN IS IMPROVING TO 2-3/10. IV IRON INFUSING PER ORDERS. PT RESTING IN BED, USING PHONE. CALL LIGHT IN REACH.
[2024-10-31 03:38] VITALS: BP 108/63
[2024-10-31 06:13] LABS: Hematocrit 24.1 % (33.0-51.0); Hemoglobin 7.8 g/dL (11.5-16.0); Mean Corpuscular HGB 24.3 pg (26.0-34.0); Mean Corpuscular HGB Conc 32.4 g/dL (31.5-36.5); Mean Corpuscular Volume 75 fL (80-100); Mean Platelet Volume 9.8 fL (9.1-12.4); Platelet Count 255 K/mm3 (150-400); RDW Coefficient Variation 20.5 % (11.7-14.2); RDW Standard Deviation 55.8 fL (35.1-46.3); Red Blood Cell Count 3.21 M/mm3 (3.80-5.20); White Blood Cell Count 8.03 K/mm3 (4.00-11.30)
--- NOTE | 2024-10-31 06:44 | NUR ---
SUMMARY PT TOLERATING PO,AMBULATORY FOR BRP,VOIDING WITHOUT DIFF,NO RECTAL BLEED NOTED.PT HOPING FOR DISCHARGE TODAY.
[2024-10-31 07:37] VITALS: BP 111/64
[2024-10-31] MEDS ORDERED: ACET325 PO (09:33)
[2024-10-31] MEDS ORDERED: FERSU300 PO (09:34)
[2024-10-31] MEDS ORDERED: DOCU100 PO (09:34)
[2024-10-31] MEDS ORDERED: ASCO500 PO (09:34)
[2024-10-31] MEDS ORDERED: SENN187 PO (09:35)
--- NOTE | 2024-10-31 10:39 | NUR ---
DISCHARGE POD 1 PT HAD NO BLEEDING DURING SHIFT AND T/O NIGHT. DENIED ANY PAIN TODAY. TOLERATED DIET WELL WITH NO NAUSEA. MEDS SENT TO [facility] PER PT REQUEST. ALL INSTRUCTIONS GONE OVER WITH PATIENT. ESCORTED OUT VIA WHEELCHAIR.
== END 2024-10-31 10:33 | disposition home or self-care (01) | DRG 349 ==
LOC: ER 11:46 → SURS 11:47 → ER 11:47 → ERHOLD 11:47 → SURS 21:17 → ERHOLD 21:17 → SURS 21:20 → MEDS 10-30 15:11 → SURS 10-30 15:11
PROVIDERS: Emergency Medicine; Internal Medicine; Physician Assistant; ADMIT Internal Medicine
PROC: 06LY8CC Occlusion of Hemorrhoidal Plexus with Extraluminal Device, Via Natural or Artificial Opening Endoscopic (ICD-10-PCS; principal; 2024-10-29)
PROC: 0DBB8ZX Excision of Ileum, Via Natural or Artificial Opening Endoscopic, Diagnostic (ICD-10-PCS; 2024-10-29)
PROC: 0DB68ZX Excision of Stomach, Via Natural or Artificial Opening Endoscopic, Diagnostic (ICD-10-PCS; 2024-10-29)
PROC: 30233N1 Transfusion of Nonautologous Red Blood Cells into Peripheral Vein, Percutaneous Approach (ICD-10-PCS; 2024-10-29)
DX: K64.8 Other hemorrhoids (principal); D50.9 Iron deficiency anemia, unspecified; E87.6 Hypokalemia; J45.909 Unspecified asthma, uncomplicated; F41.9 Anxiety disorder, unspecified; F32.A Depression, unspecified; Z90.49 Acquired absence of other specified parts of digestive tract; Z98.890 Other specified postprocedural states; Z79.899 Other long term (current) drug therapy; F43.10 Post-traumatic stress disorder, unspecified; Z87.891 Personal history of nicotine dependence; K29.70 Gastritis, unspecified, without bleeding
CPT/HCPCS: 36415; 36430; 74174; 80053; 82728; 83540; 83550; 83735; 84703; 85014; 85018; 85025; 85027; 85045; 86850; 86900; 86901; 86923; 88305; 88342; 93005; 93010; 96365-59; 96366-59; 96374; 99285-25; A9270; G0378; J2405; J2704; J2916; J3010; J3480; J7030; J7040; J7050; J7120; P9016; Q9967

== ENCOUNTER 2025-06-15 20:14 | Emergency (ER) | payer OTHER ==
[~2025-06-15] VITALS: Ht 154.9 cm; Wt 54.4 kg
[~2025-06-15 20:14] MED LIST changes: +ACET325 PO; +ASCO500 PO; +DOCU100 PO; +FERSU300 PO; +SENN187 PO
[2025-06-15] MEDS ORDERED: Ketorolac Tromethamine 15mg Vial IV ONE (20:35)
[2025-06-15] MEDS ORDERED: FentaNYL Citrate 50 MCG/ML 2 ML Injection IV PRN (21:20)
[2025-06-15 21:43] LABS: Alanine Aminotransfer (ALT/SGP 16.0 U/L (12-78); Albumin, Blood 4.1 g/dL (3.4-5.0); Albumin/Globulin Ratio 1.2 (0.8-1.8); Anion Gap 11.0 mmol/L (3-11); Aspartate Aminotrans (AST/SGOT 25.0 U/L (12-37); Bilirubin, Total 0.4 mg/dL (0.1-1.0); Blood Urea Nitrogen 8.0 mg/dL (8-24); CO2, Blood 23.0 mmol/L (21-32); Calcium, Blood 9.2 mg/dL (8.5-10.1); Chloride, Blood 107.0 mmol/L (98-108); Creatinine, Blood 0.77 mg/dL (0.40-1.00); Globulin, Blood 3.3 g/dL (2.2-4.0); Glucose, Blood 94.0 mg/dL (70-99); Potassium, Blood 4.1 mmol/L (3.5-5.5); Sodium, Blood 137.0 mmol/L (136-145); Total Protein, Blood 7.4 g/dL (6.4-8.2)
[2025-06-15 22:30] LABS: BASOPHILS ABSOLUTE AUTO 0.06 K/mm3 (0.00-0.23); BASOPHILS PERCENT AUTO 1 % (0-2); EOSINOPHILS ABSOLUTE AUTO 0.18 K/mm3 (0.00-0.68); EOSINOPHILS PERCENT AUTO 2 % (0-6); Hematocrit 34.3 % (33.0-51.0); Hemoglobin 11.9 g/dL (11.5-16.0); IMMATURE GRAN ABSOLUTE AUTO 0.02 K/mm3 (0.00-0.10); IMMATURE GRAN PERCENT AUTO 0 % (0-1); LYMPHOCYTES ABSOLUTE AUTO 2.95 K/mm3 (0.84-5.20); LYMPHOCYTES PERCENT AUTO 35 % (21-46); MONOCYTES ABSOLUTE AUTO 0.80 K/mm3 (0.16-1.47); MONOCYTES PERCENT AUTO 9 % (4-13); Mean Corpuscular HGB Conc 34.7 g/dL (31.5-36.5); Mean Corpuscular Volume 85 fL (80-100); NEUTROPHILS ABSOLUTE AUTO 4.50 K/mm3 (1.96-9.15); NEUTROPHILS PERCENT AUTO 53 % (41-73); NRBC ABSOLUTE 0.00 K/mm3 (0.00-0.02); NRBC Auto 0.0 /100 WBC (0.0-0.2); Platelet Count 263 K/mm3 (150-400); RDW Coefficient Variation 12.9 % (11.7-14.2); RDW Standard Deviation 40.0 fL (35.1-46.3)
[2025-06-15 23:00] VITALS: BP 101/76
[2025-06-15] MEDS ORDERED: RX Prepack 6 Tabs Oxycodone 5mg UD ONE (23:05)
== END 2025-06-15 23:16 | disposition home or self-care (01) ==
LOC: ER 20:14
PROVIDERS: Emergency Medicine
DX: R07.89 Other chest pain (principal); K59.00 Constipation, unspecified; K76.89 Other specified diseases of liver; N83.201 Unspecified ovarian cyst, right side; F43.10 Post-traumatic stress disorder, unspecified; J45.909 Unspecified asthma, uncomplicated; Z79.899 Other long term (current) drug therapy
CPT/HCPCS: 71046; 74177; 80053; 83690; 85025; 93005; 93010; 96374-59; 96375; 99284-25; A9270; J1885; J3010; Q9967